=== PATIENT | female | born 1965 ===

== ENCOUNTER 2017-03-16 08:27 | Emergency (ER) | payer OTHER ==
[2017-03-16 08:45] VITALS: BP 139/82; PULSE 88; RESP 16; TEMP 98.1; O2SAT 98
--- NOTE | 2017-03-16 09:09 | C.PDOC ---
History Of Present Illness 51 y/o female presents to ED with complaints of left eye itchiness for x1day with crusting and yellow discharge beginning this morning. Patient states daughter had pink eye with similar symptoms a week ago. Patient denies blurred vision, fever, chills or any other complaints at this time. Time Seen by Provider: 03/16/17 08:57 Chief Complaint (Nursing): Eye Problem History Per: Patient History/Exam Limitations: no limitations Onset/Duration Of Symptoms: Days Associated Symptoms: Itching, Discharge From Eye. denies: Decreased Vision Past Medical History Vital Signs: Last Vital Signs Temp 98.1 F 03/16/17 08:34 Pulse 88 03/16/17 08:34 Resp 16 03/16/17 08:34 BP 139/82 03/16/17 08:34 Pulse Ox 98 03/16/17 09:39 - Medical History PMH: Anemia, Asthma, Bronchitis, COPD, GERD Surgical History: Cholecystectomy, Hernia Repair (b/l) Family History: States: Unknown Family Hx - Social History Hx Tobacco Use: No Hx Alcohol Use: No Hx Substance Use: No - Immunization History Hx Tetanus Toxoid Vaccination: No Hx Influenza Vaccination: No Hx Pneumococcal Vaccination: No Review Of Systems Constitutional: Negative for: Fever, Chills Eyes: Negative for: Vision Change Neurological: Negative for: Weakness, Headache, Dizziness Physical Exam - Physical Exam Appears: Non-toxic, No Acute Distress Skin: Normal Color, Warm Head: Atraumatic, Normacephalic Eye(s): bilateral: Normal Inspection, PERRL, EOMI, left: Other (Cojuctival injection, no discharge noted) Neurological/Psych: Oriented x3, Normal Speech, Normal Cognition, Normal Motor, Normal Sensation ED Course And Treatment O2 Sat by Pulse Oximetry: 98 (Room air ) Pulse Ox Interpretation: Normal Medical Decision Making Medical Decision Makin:38am - Visual acuity check Pt discharged with prescribed eye drops Disposition Counseled Patient/Family Regarding: Diagnosis, Need For Followup, Rx Given - Disposition Referrals: Mikey Sorenson MD [Staff Provider] - Disposition: HOME/ ROUTINE Disposition Time: 09:07 Condition: GOOD Additional Instructions: Do not share towels with anyone. Try not to rub right eye to avoid spreading from left eye. Follow up with your PMD in a few days. 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 - Scribe Statement The provider has reviewed the documentation as recorded by the Scribmirtha Reese All medical record entries made by the Davidibmirtha were at my direction and personally dictated by me. I have reviewed the chart and agree that the record accurately reflects my personal performance of the history, physical exam, medical decision making, and the department course for this patient. I have also personally directed, reviewed, and agree with the discharge instructions and disposition.
== END 2017-03-16 09:13 | disposition home or self-care (01) ==
LOC: C.ER 08:27
DX: H10.9 Unspecified conjunctivitis (principal)

== ENCOUNTER 2017-08-20 07:33 | Emergency (ER) | payer OTHER ==
[2017-08-20 07:33] VITALS: BMI 37.0
[2017-08-20 07:49] VITALS: PULSE 80
[2017-08-20] MEDS ORDERED: DiphenhydrAMINE 50 mg/ml Inj IVP STA (07:53)
[2017-08-20] MEDS ORDERED: Sodium Chloride 0.9% 1,000 ML IV ONE (07:53)
--- NOTE | 2017-08-20 07:57 | C.PDOC ---
History Of Present Illness 52 yo female, employee of [employer], come in for evaluation of pruritic rash to face, chest gradually developed for past few hours. Pt reports, " was cutting strawberries in kitchen and after that started to developed rash". Pt admits, has known hx of strawberry allergy. Pt also admits, tingling sensation to tongue and lips. Otherwise, pt denies fever, chills, headache, dizziness, drooling, throat swelling, SOB, dyspnea, wheezing, abd. pain, N/V/D, denies any other active complaints. Ambulate to ED for evaluation, not in resp. distress. Time Seen by Provider: 08/20/17 07:47 Chief Complaint (Nursing): Allergic Reaction History Per: Patient Past Medical History Reviewed: Historical Data, Nursing Documentation, Vital Signs Vital Signs: Last Vital Signs Temp 98.0 F 08/20/17 10:21 Pulse 80 08/20/17 10:21 Resp 20 08/20/17 10:21 BP 109/72 08/20/17 10:21 Pulse Ox 99 08/20/17 10:21 - Medical History PMH: Anemia, Asthma, Bronchitis, COPD, GERD Denies: Chronic Kidney Disease Surgical History: Cholecystectomy, Hernia Repair (b/l) Family History: States: Unknown Family Hx - Social History Hx Tobacco Use: No Hx Alcohol Use: No Hx Substance Use: No - Immunization History Hx Tetanus Toxoid Vaccination: No Hx Influenza Vaccination: No Hx Pneumococcal Vaccination: No Review Of Systems Except As Marked, All Systems Reviewed And Found Negative. Constitutional: Negative for: Fever, Chills Eyes: Negative for: Vision Change ENT: Negative for: Ear Discharge, Nose Discharge, Throat Pain, Throat Swelling Cardiovascular: Negative for: Chest Pain, Palpitations Respiratory: Negative for: Cough, Shortness of Breath, Wheezing Gastrointestinal: Negative for: Nausea, Vomiting, Abdominal Pain, Diarrhea Genitourinary: Negative for: Dysuria, Incontinence Musculoskeletal: Negative for: Neck Pain, Back Pain Skin: Positive for: Rash Neurological: Negative for: Weakness, Numbness, Altered Mental Status, Headache , Dizziness Physical Exam - Physical Exam Appears: Well, Non-toxic, No Acute Distress Skin: Normal Color, Warm, Dry, Rash (erythematous macular rash on erythematous base to face, anterios chest wall.) Head: Normacephalic Eye(s): bilateral: PERRL Nose: No Flaring, No Discharge Oral Mucosa: Moist, No Drooling Tongue: Normal Appearing, No Swelling Lips: Normal Appearing, No Swelling Throat: No Erythema, No Drooling, Other (Uvula midline, no edema.) Neck: Supple Cardiovascular: Rhythm Regular Respiratory: No Decreased Breath Sounds, No Accessory Muscle Use, No Stridor, No Wheezing Gastrointestinal/Abdominal: Soft, No Tenderness Back: No CVA Tenderness Extremity: Normal ROM, No Pedal Edema Neurological/Psych: Oriented x3, Normal Speech ED Course And Treatment - Laboratory Results Result Diagrams: 08/20/17 08:39 08/20/17 08:39 Lab Interpretation: No Acute Changes O2 Sat by Pulse Oximetry: 100 Pulse Ox Interpretation: Normal Progress Note: Pt was OBS in ED for 2 hours and reports moderate improvemnet in sx. Pt denies CP, SOB, dyspnea, drooling, denies tongue or lips tingling at present time, n throat swelling. Afebrile, hemodynamicalys table. Non-toxic. PUlsEOx 99% RA. ENT: No acute findings. uvula midline, no edema. Neck: Supple , (-) JVD. Lungs: CTA B/L, BS equal B/L. Abd: benign, (-) guarding, (-) rebound, (-) localized tenderness. back: (-) CVA tenderness. SKin: Modearte improvement in facial rash, no edema. Blood work review and appears without acute changes compare to previous study. PT has clinical findings c/w allergic reaction to food. Pt advised to avoid known allergen in future. Return to ED if any worsening or new changes. Disposition Counseled Patient/Family Regarding: Studies Performed, Diagnosis, Need For Followup, Rx Given - Disposition Referrals: Mikey Sorenson MD [Staff Provider] - Disposition: HOME/ ROUTINE Disposition Time: 09:37 Condition: STABLE Additional Instructions: AVOID KNOWN ALLERGEN LIKE STRAWBERRY IN FUTURE DUE TO SEVERE ALLERGIC REACTION ENCOURAGE FLUIDS TAKE MEDICATION PRESCRIBED FOLLOW UP WITH PMD AND THEATRICAL SCENIC DESIGNER IN 2-3 DAYS FOR RE-EVALUATION. RETURN TO ED IF ANY WORSENING OR NEW CHANGES. Prescriptions: DiphenhydrAMINE [Benadryl] 25 mg PO BID #10 cap Famotidine [Pepcid] 20 mg PO BID #10 tab Prednisone [Deltasone] 40 mg PO DAILY #6 tablet Instructions: Food Allergy (ED) Forms: [employer] (Swedish), Work Excuse - Clinical Impression Clinical Impression: Allergic urticaria
[2017-08-20] MEDS ORDERED: DiphenhydrAMINE 50 mg/ml Inj ONE (08:14)
[2017-08-20] MEDS ORDERED: Sodium Chloride 0.9% 1,000 ML ONE (08:14)
[2017-08-20 08:49] VITALS: RESP 20
[2017-08-20 08:54] LABS: BASO % 0.3 % (0.0-2.0); HEMATOCRIT 38.3 % (34.0-47.0); LYMPH % 26.6 % (20.0-40.0); MEAN CORPUSCULAR HEMOGLOBIN 30.9 pg (27.0-31.0); MEAN CORPUSCULAR HGB CONC 34.5 g/dL (33.0-37.0); MEAN PLATELET VOLUME 7.4 fL (7.2-11.7); MONO # 0.3 K/uL (0.0-0.8); MONO % 8.5 % (0.0-10.0); NRBC % 0.1 % (0.0-2.0); RED CELL DISTRIBUTION WIDTH 14.3 % (11.5-14.5); WHITE BLOOD COUNT 3.7 K/uL (4.8-10.8)
[2017-08-20 09:03] LABS: URINE BILIRUBIN NEGATIVE (NEGATIVE); URINE BLOOD 1+ (NEGATIVE); URINE COLOR Yellow (YELLOW); URINE GLUCOSE (UA) NORMAL (Normal); URINE KETONE NEGATIVE (NEGATIVE); URINE LEUKOCYTE ESTERASE NEG Leu/uL (Negative); URINE PROTEIN NEGATIVE (NEGATIVE); URINE UROBILINOGEN NORMAL mg/dL (0.2-1.0); WBC URINE 1 /hpf (0-5)
[2017-08-20 09:08] LABS: CHLORIDE 100 mmol/L (98-107); SODIUM 132 mmol/L (132-148)
[2017-08-20 09:10] LABS: GFR AFRICAN-AMERICAN > 60; MEAN CELL VOLUME 89.5 fL (81.0-99.0)
[2017-08-20 09:11] LABS: BLOOD UREA NITROGEN 13 mg/dL (7-17); CALCIUM 8.3 mg/dl (8.6-10.4); CARBON DIOXIDE 20 mmol/L (22-30); GLUCOSE,RANDOM 97 mg/dL (65-105)
[2017-08-20 09:16] LABS: RBC URINE 3 /hpf (0-3)
[2017-08-20 10:21] VITALS: BP 109/72; TEMP 98
[2017-08-20 16:02] VITALS: O2SAT 100
== END 2017-08-20 10:32 | disposition home or self-care (01) ==
LOC: C.ER 07:33
DX: L50.0 Allergic urticaria (principal); J44.9 Chronic obstructive pulmonary disease, unspecified
CPT/HCPCS: 80048; 81001; 84703; 85025; 96361; 96374; 96375; 99285; J1200; J2930; J7040

== ENCOUNTER 2017-11-05 08:34 | Emergency (ER) | payer OTHER ==
[2017-11-05 08:34] VITALS: BMI 37.0
[2017-11-05 09:05] VITALS: BP 152/80; TEMP 98.4
[2017-11-05] MEDS ORDERED: Albuterol-Ipratrop 3 mg / 0.5 (3 ml) UD IH STA (09:30)
--- NOTE | 2017-11-05 09:30 | C.PDOC ---
History Of Present Illness CO COPD EXAC ONSET THIS MORNING. +NEW ONSET COUGH NO FEVER. NO RELIEF W USUAL MDI THIS MORNING. DENIES URI SX EXAM NARD APPEARS COMFORTABLE HEENT NEG LUNGS CT AB/L NO W/R/R Time Seen by Provider: 11/05/17 09:13 Chief Complaint (Nursing): Shortness Of Breath History Per: Patient History/Exam Limitations: no limitations Onset/Duration Of Symptoms: Sudden Onset (since morning) Past Medical History Reviewed: Historical Data, Nursing Documentation, Vital Signs Vital Signs: Last Vital Signs Temp 98.4 F 11/05/17 08:54 Pulse 94 H 11/05/17 08:54 Resp 17 11/05/17 09:37 BP 152/80 H 11/05/17 08:54 Pulse Ox 100 11/05/17 10:29 - Medical History PMH: Anemia, Asthma, Bronchitis, COPD, GERD Surgical History: Cholecystectomy, Hernia Repair (b/l) Family History: States: No Known Family Hx - Social History Hx Tobacco Use: No Hx Alcohol Use: No Hx Substance Use: No - Immunization History Hx Tetanus Toxoid Vaccination: No Hx Influenza Vaccination: No Hx Pneumococcal Vaccination: No Review Of Systems Except As Marked, All Systems Reviewed And Found Negative. Constitutional: Negative for: Fever Respiratory: Positive for: Cough, Other ((+) COPD exacerbation) Gastrointestinal: Negative for: Vomiting Neurological: Negative for: Headache Physical Exam - Physical Exam Appears: Non-toxic, No Acute Distress, Other (NARD) Skin: Warm, Dry, No Rash Head: Atraumatic, Normacephalic Nose: Normal Oral Mucosa: Moist Throat: Normal, No Erythema, No Exudate, No Drooling Neck: Normal, Normal ROM, Supple Cardiovascular: Rhythm Regular, No Murmur Respiratory: Normal Breath Sounds, No Rales, No Rhonchi, No Stridor, No Wheezing Extremity: Normal ROM, No Swelling Neurological/Psych: Oriented x3, Normal Speech, Normal Motor Gait: Steady ED Course And Treatment O2 Sat by Pulse Oximetry: 100 (RA) Pulse Ox Interpretation: Normal Reevaluation Time: 10:26 Reassessment Condition: Improved (WISHES DC HOME) Medical Decision Making Medical Decision Making: PLAN: * Albuterol IH * Prednisone PO Disposition Counseled Patient/Family Regarding: Diagnosis, Need For Followup, Rx Given - Disposition Referrals: YOUR,PMD [Other] Disposition: HOME/ ROUTINE Disposition Time: 10:26 Condition: IMPROVED Prescriptions: predniSONE [Prednisone] 60 mg PO DAILY #15 tab Instructions: COPD (Chronic Obstructive Pulmonary Disease) (ED) Forms: [facility] (Qatari), Work Excuse - Clinical Impression Clinical Impression: COPD with exacerbation - Scribe Statement The provider has reviewed the documentation as recorded by the Davidibmirtha Guajardo Provider Attestation: All medical record entries made by the Davidibmirtha were at my direction and personally dictated by me. I have reviewed the chart and agree that the record accurately reflects my personal performance of the history, physical exam, medical decision making, and the department course for this patient. I have also personally directed, reviewed, and agree with the discharge instructions and disposition.
[2017-11-05] MEDS ORDERED: Albuterol-Ipratrop 3 mg / 0.5 (3 ml) UD ONE (09:44)
[2017-11-05 11:01] VITALS: PULSE 89; RESP 18; O2SAT 98
== END 2017-11-05 11:00 | disposition home or self-care (01) ==
LOC: C.ER 08:34
DX: J44.1 Chronic obstructive pulmonary disease with (acute) exacerbation (principal)

== ENCOUNTER 2018-12-06 10:25 | Emergency (ER) | payer OTHER ==
[2018-12-06 10:30] VITALS: BMI 35.2
[2018-12-06 10:33] VITALS: BP 149/81; PULSE 83; RESP 16; TEMP 98.7; O2SAT 97
--- NOTE | 2018-12-06 11:18 | C.PDOC ---
History Of Present Illness 53 year old female presents to the ED for evaluation s/p head injury sustained earlier today. 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 She states she was at work and was leaning down, when she accidentally hit her head on the fridge door handle. Patient is complaining of a bump to her head, headache and some lightheadedness. Patient denies loss of consciousness, vision change, nausea, vomiting. Time Seen by Provider: 12/06/18 11:04 Chief Complaint (Nursing): Headache History Per: Patient History/Exam Limitations: no limitations Onset/Duration Of Symptoms: Hrs Current Symptoms Are (Timing): Still Present Quality: "Pain" Associated Symptoms: denies: Photophobia, Blurred Vision, Nausea, Vomiting Additional History Per: Patient Past Medical History Reviewed: Historical Data, Nursing Documentation, Vital Signs Vital Signs: Last Vital Signs Temp 98.7 F 12/06/18 10:30 Pulse 83 12/06/18 10:30 Resp 16 12/06/18 10:30 BP 149/81 12/06/18 10:30 Pulse Ox 97 12/06/18 10:30 - Medical History PMH: Anemia, Asthma, Bronchitis, COPD, Emphysema, GERD Denies: Chronic Kidney Disease Surgical History: Cholecystectomy, Hernia Repair (b/l) Family History: States: Unknown Family Hx - Social History Hx Tobacco Use: No Hx Alcohol Use: No Hx Substance Use: No - Immunization History Hx Tetanus Toxoid Vaccination: No Hx Influenza Vaccination: No Hx Pneumococcal Vaccination: No Review Of Systems Eyes: Negative for: Vision Change Gastrointestinal: Negative for: Nausea, Vomiting Skin: Positive for: Other (head injury, c/o bump to head) Neurological: Positive for: Other (positive lightheadedness, negative LOC ) Physical Exam - Physical Exam Appears: Non-toxic, No Acute Distress Skin: Normal Color, Warm, Dry Head: Atraumatic, Normacephalic, No Tenderness, No Swelling, No Abrasion, No Laceration, No Other (contusion ) Eye(s): bilateral: Normal Inspection, PERRL, EOMI Oral Mucosa: Moist Neck: Normal ROM, No Midline Cervical Tenderness, Paracervical Tenderness (mild), Supple Chest: Symmetrical, No Deformity, No Tenderness Cardiovascular: Rhythm Regular, No Murmur Respiratory: Normal Breath Sounds, No Rales, No Rhonchi, No Wheezing Extremity: Normal ROM, Capillary Refill (less than 2 seconds ) Neurological/Psych: Oriented x3, Normal Speech, Normal Cognition, Normal Cranial Nerves, Normal Motor, Normal Sensation Gait: Steady ED Course And Treatment O2 Sat by Pulse Oximetry: 97 (on RA) Pulse Ox Interpretation: Normal Progress Note: Tylenol PO and Zofran PO given. On reassessment, patient is resting comfortably, showing no signs of distress and reports an improvement in her symptoms. Patient is provided with a work note and is stable for discharge. She is advised to follow up with her PMD within 1-2 days for further evaluation and/or return to the ED if symptoms persist or worsen. Disposition Counseled Patient/Family Regarding: Diagnosis, Need For Followup, Rx Given - Disposition Referrals: Mikey Sorenson MD [Staff Provider] - Disposition: HOME/ ROUTINE Disposition Time: 11:25 Condition: STABLE Additional Instructions: FOLLOW UP WITH YOUR DOCTOR IN 1-2 DAYS USE MEDICATIONS NEEDED RETURN TO ER IF YOU HAVE CONCERNING SYMPTOMS, SUCH SEVERE DIZZINESS, NAUSEA/V OMITING, ETC Prescriptions: Acetaminophen [Tylenol 325mg tab] 650 mg PO Q6 PRN #30 tab PRN Reason: pain/fever Ibuprofen [Motrin Tab] 600 mg PO Q6 PRN #30 tab PRN Reason: fever/pain Ondansetron ODT [Zofran ODT] 1 odt PO BID PRN #15 odt PRN Reason: Nausea/Vomiting Instructions: Closed Head Injury (DC) Forms: [facility] (Latvian), Work Excuse Print Language: DUTCH - Clinical Impression Clinical Impression: Closed head injury - Scribe Statement The provider has reviewed the documentation as recorded by the Scribe (Jacquelyn Rashid) Provider Attestation: All medical record entries made by the Scribe were at my direction and personally dictated by me. I have reviewed the chart and agree that the record accurately reflects my personal performance of the history, physical exam, me dical decision making, and the department course for this patient. I have also personally directed, reviewed, and agree with the discharge instructions and disposition.
== END 2018-12-06 11:27 | disposition home or self-care (01) ==
LOC: C.ER 10:25
DX: S09.90XA Unspecified injury of head, initial encounter (principal); W22.8XXA Striking against or struck by other objects, initial encounter; Y92.233 Cafeteria of hospital as the place of occurrence of the external cause; Y99.0 Civilian activity done for income or pay